=== PATIENT | male | born 1960 | race Caucasian/White ===

== ENCOUNTER 2024-09-27 12:39 | Emergency (ER) | payer MEDICARE, MEDICAID ==
[~2024-09-27] VITALS: Ht 177.8 cm; Wt 80.0 kg
[~2024-09-27 12:39] MED LIST: LEVE500T19 PO; THIA100T72 MT; TRAM50TA3 MT
[2024-09-27 12:40] VITALS: O2SAT 98
[2024-09-27] MEDS: CHLORDIAZEPOXIDE 25MG CAPSULE PO ONE ×2 (15:11→18:57)
[2024-09-27 15:49] LABS: BASOPHILS % 1.4 % (0.0-2.0); DIFFERENTIAL COMMENT 0; HEMATOCRIT. 40.8 % (42.0-52.0); HEMOGLOBIN. 13.7 g/dL (14.0-18.0); LYMPHOCYTES % 39.5 % (20.0-50.0); MEAN CORPUSCULAR HEMOGLOBIN 34.4 pg (28.0-32.0); MEAN CORPUSCULAR HGB CONC 33.6 g/dL (31.0-37.0); MEAN CORPUSCULAR VOLUME 102.4 fL (80.0-94.0); MEAN PLATELET VOLUME 8.2 fl (7.4-10.4); NEUTROPHILS % 53.1 % (40.0-76.0); PLATELET 115 x1000/uL (130-400); RED BLOOD CELL COUNT 3.98 mill/uL (4.7-6.1); RED CELL DISTRIBUTION WIDTH 14.7 % (11.6-14.6)
[2024-09-27 15:57] LABS: CLARITY URINE CLEAR (CLEAR); COLOR URINE YELLOW (YELLOW); GLUCOSE URINE NEGATIVE (NEGATIVE); KETONES URINE NEGATIVE (NEGATIVE); LEUKOCYTE ESTERASE URINE NEGATIVE (NEGATIVE); NITRITE URINE NEGATIVE (NEGATIVE); OCCULT BLOOD URINE NEGATIVE (NEGATIVE); PROTEIN URINE NEGATIVE (NEGATIVE); SPECIFIC GRAVITY URINE 1.015 (1.005-1.030); UROBILINOGEN URINE 0.2 E.U./dL (0.2-1.0)
[2024-09-27 16:02] LABS: INR 0.9; PROTHROMBIN TIME 10.6 sec (9.6-11.0)
[2024-09-27 16:08] LABS: *AMPHETAMINES SCREEN URINE NEGATIVE (NEGATIVE); *BENZODIAZEPINES SCREEN URINE NEGATIVE (NEGATIVE)
[2024-09-27 16:09] LABS: *BARBITURATES SCREEN URINE NEGATIVE (NEGATIVE); *COCAINE SCREEN URINE NEGATIVE (NEGATIVE); CANNABINOID URINE SCREEN NEGATIVE (NEGATIVE); ECSTASY MDMA SCREEN URINE NEGATIVE (NEGATIVE); METHADONE URINE SCREEN NEGATIVE (NEGATIVE); OPIATES URINE SCREEN NEGATIVE (NEGATIVE); PHENCYCLIDINE URINE SCREEN NEGATIVE (NEGATIVE)
[2024-09-27 16:38] LABS: CHLORIDE 105 mEq/L (98-107); POTASSIUM 3.6 mEq/L (3.5-5.1); SODIUM 139 mEq/L (136-145)
[2024-09-27 16:39] LABS: CALCIUM 9.1 mg/dL (8.7-10.4); CARBON DIOXIDE 26 mEq/L (21-32)
[2024-09-27 16:44] LABS: CREATININE 0.8 mg/dL (0.6-1.3); GLUCOSE 103 mg/dL (70-105)
[2024-09-27 16:45] LABS: UREA NITROGEN BLOOD 9 mg/dL (9-23)
[2024-09-27 17:03] LABS: ETHANOL BLOOD 443 mg/dL (<10)
[2024-09-27 18:38] VITALS: BP 111/69; PULSE 70; RESP 16; TEMP 36.7; O2SAT 98
== END 2024-09-27 19:35 | disposition home or self-care (01) ==
LOC: ER 12:39
DX: F10.129 Alcohol abuse with intoxication, unspecified (principal); G40.909 Epilepsy, unspecified, not intractable, without status epilepticus; I10 Essential (primary) hypertension; Y90.8 Blood alcohol level of 240 mg/100 ml or more
CPT/HCPCS: 36415; 80048; 80305; 80320; 81003; 85025; 99284; G0480

== ENCOUNTER 2024-10-07 14:46 | Emergency (ER) | payer MEDICARE, MEDICAID ==
[~2024-10-07] VITALS: Ht 154.9 cm; Wt 81.0 kg
[2024-10-07 14:51] VITALS: O2SAT 98
[2024-10-07 16:17] LABS: *AMPHETAMINES SCREEN URINE NEGATIVE (NEGATIVE); *BARBITURATES SCREEN URINE NEGATIVE (NEGATIVE); *BENZODIAZEPINES SCREEN URINE PRESUMPTIVE POSITIVE (NEGATIVE); *COCAINE SCREEN URINE NEGATIVE (NEGATIVE); CANNABINOID URINE SCREEN NEGATIVE (NEGATIVE); ECSTASY MDMA SCREEN URINE NEGATIVE (NEGATIVE); METHADONE URINE SCREEN NEGATIVE (NEGATIVE); OPIATES URINE SCREEN NEGATIVE (NEGATIVE); PHENCYCLIDINE URINE SCREEN NEGATIVE (NEGATIVE)
[2024-10-07 16:53] LABS: BASOPHILS % 2.6 % (0.0-2.0); DIFFERENTIAL COMMENT 0; EOSINOPHILS % 1.5 % (0.0-5.0); HEMATOCRIT. 40.6 % (42.0-52.0); HEMOGLOBIN. 13.7 g/dL (14.0-18.0); MEAN CORPUSCULAR HEMOGLOBIN 34.2 pg (28.0-32.0); MEAN CORPUSCULAR HGB CONC 33.7 g/dL (31.0-37.0); MEAN CORPUSCULAR VOLUME 101.3 fL (80.0-94.0); MEAN PLATELET VOLUME 7.6 fl (7.4-10.4); MONOCYTES % 4.6 % (2.0-8.0); NEUTROPHILS % 51.3 % (40.0-76.0); PLATELET 175 x1000/uL (130-400); RED CELL DISTRIBUTION WIDTH 14.4 % (11.6-14.6); WHITE BLOOD COUNT 4.5 x1000/uL (4.5-11.0)
[2024-10-07 17:08] LABS: CHLORIDE 102 mEq/L (98-107); POTASSIUM 3.7 mEq/L (3.5-5.1); SODIUM 139 mEq/L (136-145)
[2024-10-07 17:10] LABS: CARBON DIOXIDE 25 mEq/L (21-32)
[2024-10-07 17:11] LABS: CALCIUM 8.7 mg/dL (8.7-10.4)
[2024-10-07 17:15] LABS: CREATININE 0.8 mg/dL (0.6-1.3); GLUCOSE 85 mg/dL (70-105)
[2024-10-07 17:16] LABS: ETHANOL BLOOD 300 mg/dL (<10); UREA NITROGEN BLOOD 8 mg/dL (9-23)
[2024-10-07 17:17] LABS: ALANINE AMINOTRANSFERASE 27 IU/L (10-49); ASPARTATE AMINOTRANSFERASE 52 IU/L (<34)
[2024-10-07 17:18] LABS: BILIRUBIN DIRECT 0.2 mg/dL (<=3.0); BILIRUBIN TOTAL 0.5 mg/dL (0.1-1.0); PROTEIN TOTAL 7.1 g/dL (6.0-8.3)
[2024-10-07] MEDS: CHLORDIAZEPOXIDE 10MG CAPSULE PO ONE (18:50)
[2024-10-07 20:00] VITALS: BP 118/66; PULSE 74; RESP 16; TEMP 36.7; O2SAT 97
== END 2024-10-07 20:02 | disposition home or self-care (01) ==
LOC: ER 14:46
DX: F10.229 Alcohol dependence with intoxication, unspecified (principal); Z79.899 Other long term (current) drug therapy; Y90.8 Blood alcohol level of 240 mg/100 ml or more
CPT/HCPCS: 36415; 80048; 80076; 80305; 80320; 85025; 99283; G0480

== ENCOUNTER 2024-11-18 13:06 | Emergency (ER) | payer MEDICARE, MEDICAID ==
[~2024-11-18] VITALS: Ht 167.6 cm; Wt 70.0 kg
[2024-11-18 13:07] VITALS: O2SAT 99
[2024-11-18] MEDS: LEVETIRACETAM 1000MG PREMIX 100 ML IV ONE (14:13)
[2024-11-18] MEDS: SODIUM CHLORIDE 0.9% 1,000 ML IV ONE (14:13)
[2024-11-18 15:01] LABS: BASOPHILS % 1.2 % (0.0-2.0); DIFFERENTIAL COMMENT 0; EOSINOPHILS % 0.3 % (0.0-5.0); HEMATOCRIT. 42.3 % (42.0-52.0); HEMOGLOBIN. 14.2 g/dL (14.0-18.0); MEAN CORPUSCULAR HEMOGLOBIN 34.7 pg (28.0-32.0); MEAN CORPUSCULAR HGB CONC 33.6 g/dL (31.0-37.0); MEAN CORPUSCULAR VOLUME 103.1 fL (80.0-94.0); MEAN PLATELET VOLUME 8.4 fl (7.4-10.4); MONOCYTES % 10.8 % (2.0-8.0); NEUTROPHILS % 57.7 % (40.0-76.0); PLATELET 89 x1000/uL (130-400); RED CELL DISTRIBUTION WIDTH 13.9 % (11.6-14.6); WHITE BLOOD COUNT 4.6 x1000/uL (4.5-11.0)
[2024-11-18 15:08] LABS: CHLORIDE 98 mEq/L (98-107); POTASSIUM 3.6 mEq/L (3.5-5.1); SODIUM 142 mEq/L (136-145)
[2024-11-18 15:09] LABS: CARBON DIOXIDE 30 mEq/L (21-32)
[2024-11-18 15:10] LABS: CALCIUM 9.4 mg/dL (8.7-10.4)
[2024-11-18 15:14] LABS: CREATININE 0.8 mg/dL (0.6-1.3); GLUCOSE 85 mg/dL (70-105)
[2024-11-18 15:15] LABS: UREA NITROGEN BLOOD 7 mg/dL (9-23)
[2024-11-18 15:24] LABS: ETHANOL BLOOD 374 mg/dL (<10)
[2024-11-18 17:11] VITALS: TEMP 36.8
[2024-11-18 22:15] VITALS: BP 119/72; PULSE 74; RESP 12; O2SAT 97
== END 2024-11-18 22:30 | disposition home or self-care (01) ==
LOC: ER 13:06
DX: F10.129 Alcohol abuse with intoxication, unspecified (principal); Z79.899 Other long term (current) drug therapy; Y90.9 Presence of alcohol in blood, level not specified
CPT/HCPCS: 80048; 80320; 85025; 36415; 93005; 96374; 99285; J1953; J7030; G0480